=== PATIENT | female | born 1955 | race Caucasian/White ===

== ENCOUNTER → 2016-05-30 | Outpatient (CLI) | payer OTHER ==
[~2016-05-30] MED LIST: MOTRIN800 MG PO; ZOLOFT50 MG PO
== END | disposition home or self-care (01) ==
LOC: MAMMO 12:40
DX: Z12.31 Encounter for screening mammogram for malignant neoplasm of breast (principal); Z13.820 Encounter for screening for osteoporosis; Z78.0 Asymptomatic menopausal state; Z87.310 Personal history of (healed) osteoporosis fracture; M85.88 Other specified disorders of bone density and structure, other site

== ENCOUNTER 2017-10-07 23:17 | Emergency (ER) | payer BC, OTHER ==
[~2017-10-07] VITALS: Ht 167.6 cm; Wt 83.0 kg
[2017-10-08] MEDS ORDERED: Motrin,Rufen800 MG PO (01:05)
== END 2017-10-08 01:15 | disposition home or self-care (01) ==
LOC: ED 23:17
DX: S00.83XA Contusion of other part of head, initial encounter (principal); M79.602 Pain in left arm; M25.522 Pain in left elbow; Z98.51 Tubal ligation status; Z79.899 Other long term (current) drug therapy; W01.0XXA Fall on same level from slipping, tripping and stumbling without subsequent striking against object, initial encounter; Y93.89 Activity, other specified; Y92.89 Other specified places as the place of occurrence of the external cause; Y99.9 Unspecified external cause status

== ENCOUNTER → 2019-02-03 | Outpatient (CLI) | payer BC ==
[~2019-02-03] MED LIST changes: +Motrin,Rufen800 MG PO
== END | disposition home or self-care (01) ==
LOC: RAD 16:12
DX: M19.011 Primary osteoarthritis, right shoulder (principal); R29.898 Other symptoms and signs involving the musculoskeletal system

== ENCOUNTER 2021-07-17 01:11 | Emergency (ER) | payer OTHER ==
[~2021-07-17] VITALS: Ht 167.6 cm; Wt 83.7 kg
[2021-07-17] MEDS ORDERED: HEARTBURN RELIE20 MG PO (04:06)
[2021-07-17] MEDS ORDERED: MEDROL DOSEPAK4 MG PO (04:06)
== END 2021-07-17 04:10 | disposition home or self-care (01) ==
LOC: ED 01:11
DX: L50.9 Urticaria, unspecified (principal); I10 Essential (primary) hypertension; Z79.899 Other long term (current) drug therapy; Z98.51 Tubal ligation status